=== PATIENT | female | born 1960 | race Caucasian/White ===

== ENCOUNTER 2019-01-12 16:13 | Emergency (ER) | payer BC, OTHER ==
[2019-01-12 17:22] VITALS: BP 149/92
--- NOTE | 2019-01-12 17:24 | UC ---
Skin Complaint HPI - HPI Summary HPI Summary: 58 yo female presents with poison tess exposure. She tells me that about 14-16 days ago she was removing a lot of plant material from her property. Over the next 1-2 days developed some linear red blistering to her left wrist and forearm. Over the next week developed similar appearing lesions on right arm, abdomen, and thigh. She has been taking an OTC antihistamine for this. Over the last 3 days has developed red blistering to her right cheek and earlobe. These have increased in swelling and pain since 3 days ago. Blisters have developed. She denies fever, chills, trouble hearing, drainage from the ear. - History of Current Complaint Chief Complaint: UCEar Time Seen by Provider: 01/12/19 17:24 Stated Complaint: SWOLLEN EAR AND RASH Hx Obtained From: Patient Onset/Duration: Gradual Onset Onset Severity: Severe Current Severity: Severe Pain Intensity: 7 Pain Scale Used: 0-10 Numeric - Allergy/Home Medications Allergies/Adverse Reactions: Allergies Allergy/AdvReac Type Severity Reaction Status Date / Time morphine Allergy respiratory Verified 01/12/19 17:22 response ended up in ICU after surgery NSAIDS (Non-Steroidal Allergy Pt got an Verified 01/12/19 17:22 Anti-Inflamma ulcer secondary to NSAID use topiramate Allergy caused Verified 01/12/19 17:22 acute glaucoma IV narcotics Allergy very Uncoded 07/01/18 11:23 sensitive to these with respiratory response PMH/Surg Hx/FS Hx/Imm Hx Cardiovascular History: Hypertension Respiratory History: COPD, Asthma Other History Of: Negative For: Anticoagulant Therapy - Surgical History Surgical History: Yes Surgery Procedure, Year, and Place: TONSILLECTOMY [address] [facility]. 2010 [place] [facility] [place] [facility] 2002 BONE GRAFT LEFT KNEE TO LEFT ANKLE [facility] [place]. -[facility] . LEFT ANKLE REPLACEMENT 2000-TRIGGER THUMB RIGHT[place] [place]. February 2014 - left total ANKLE replacement. 11/2011- [facility]- OFFICE - Family History Known Family History: Positive: None - Social History Lives: With Family Alcohol Use: Rare Alcohol Amount: 1 DRINK A MONTH Substance Use Type: None Smoking Status (MU): Never Smoked Tobacco - Immunization History Most Recent Influenza Vaccination: 04/2014 Most Recent Tetanus Shot: 04/2012 Most Recent Pneumonia Vaccination: NONE Review of Systems All Other Systems Reviewed And Are Negative: Yes Constitutional: Positive: Negative Skin: Positive: Rash Respiratory: Positive: Negative Cardiovascular: Positive: Negative Neurovascular: Positive: Negative Neurological: Positive: Negative Psychological: Positive: Negative Physical Exam - Summary Physical Exam Summary: GENERAL: NAD. WDWN. No pain distress. SKIN: B/L forearms with healing linear erythema and scant clear blistering 1- 5mm in size. On right ear there is moderate edema and mild erythema to earlobe and preauricular area with clear vesicles/blistering. TTP. No abscess, drainage , or streaking. No open wound. HEENT: Head: AT/NC Eyes: EOM intact. No lesions periorbitally Ears: Hearing grossly normal. TMs intact, no bulging, erythema, or edema. No lesions within ear canal. Throat: Posterior oropharynx without exudates, erythema, or tonsillar enlargement. Uvula midline. NECK: Supple. Nontender. No lymphadenopathy. CHEST: CTAB. No r/r/w. No accessory muscle use. Breathing comfortably and in no distress. CV: RRR. Without m/r/g. Pulses intact. Cap refill <2seconds NEURO: Alert. PSYCH: Age appropriate behavior. Triage Information Reviewed: Yes Vital Signs: Initial Vital Signs Temp 98.6 F 01/12/19 17:18 Pulse 76 01/12/19 17:18 Resp 12 01/12/19 17:18 BP 149/92 01/12/19 17:18 Pulse Ox 100 01/12/19 17:18 Vital Signs Reviewed: Yes Course/Dx - Course Course Of Treatment: Suspect poison tess. Advised to apply ice to her right ear/cheek area to decrease inflammation. Continue with antihistamine. Will place her on augmentin for prophylactic infection as no lesions or area appear infectious/cellulitic at this time. Will also place her prednisone for worsening/spreading poison tess. I recommended that she f/u with ENT this week as the lesions are on her right ear and could spread to her ear canal, but she is going out of town for 5 days for the January 14 holiday and says she wouldn't be able to attend ENT f/u. Therefore, I advised her that if her pain, redness, or swelling worsen or if she develops hearing difficulties or a fever that she go to the ER. Pt voiced understanding and agrees with the plan. - Diagnoses Provider Diagnosis: Contact dermatitis due to poison tess Discharge - Sign-Out/Discharge Documenting (check all that apply): Patient Departure All imaging exams completed and their final reports reviewed: No Studies - Discharge Plan Condition: Stable Disposition: HOME Prescriptions: Amoxicillin/Clavulanate TAB* [Augmentin TAB 875*] 875 mg PO BID #14 tab predniSONE TAB* [Deltasone 20 MG TAB*] 60 mg PO DAILY #17 tab Patient Education Materials: Poison Tess (ED) Referrals: Sushil Pires MD [Primary Care Provider] - Additional Instructions: If you develop a fever, shortness of breath, chest pain, new or worsening symptoms - please call your PCP or go to the ED immediately. Your blood pressure was high at todays visit. Please see your primary provider within 4 weeks for recheck and re-evaluation. 1) Apply ice to the area of discomfort to reduce swelling and pain 2) If the swelling worsens or if you develop trouble hearing or a fever - please be rechecked immediately - Billing Disposition and Condition Condition: STABLE Disposition: Home - Attestation Statements Provider Attestation: Per institutional requirements, I have reviewed the chart, however, I was not consulted specifically or made aware of this patient by the midlevel provider. I did not personally evaluate, interact with , or disposition this patient.
== END 2019-01-12 17:50 | disposition home or self-care (01) ==
LOC: UCEAST 16:13
DX: L24.7 Irritant contact dermatitis due to plants, except food (principal); I10 Essential (primary) hypertension; J44.9 Chronic obstructive pulmonary disease, unspecified; Z88.5 Allergy status to narcotic agent
CPT/HCPCS: 99212; G0463

== ENCOUNTER 2022-06-04 12:12 | Observation (INO) ==
[~2022-06-04 12:12] MED LIST: Buffered Lidocaine 1% SYRIN 1 ml INTRADERM ONE; Lactated Ringers 1000 ml BAG 1,000 ML IV SCH
[2022-06-04] MEDS ORDERED: Midazolam 2 mg/2 ml VIAL 1 mg/ml 2 ml VIAL (2 mg) ONE ×2 (12:28→14:04)
[2022-06-04] MEDS ORDERED: fentaNYL 100 mcg/2 ml 50 MCG/ML VIAL ONE ×4 (12:28→17:31)
[2022-06-04] MEDS ORDERED: Lidocaine 2% PF 5 ML VIAL ONE (12:29)
[2022-06-04] MEDS ORDERED: ceFAZolin 1 GM in Dextrose 0 GM/0 ML BAG ONE (12:36)
[2022-06-04] MEDS ORDERED: Ropivacaine 5 MG/ML 20 ML VIAL 0.5% (100 MG) ONE (14:01)
[2022-06-04] MEDS ORDERED: ROPIVACAINE 5 MG/ML 30 ML BTL (0.5%) ONE (14:04)
[2022-06-04] MEDS ORDERED: Phenylephrine IV 10 MG/ML 1 ml VIAL ONE (14:07)
[2022-06-04] MEDS ORDERED: Glycopyrrolate IV 0.2 MG/ML 1 ML VIAL ONE (14:47)
[2022-06-04] MEDS ORDERED: Ondansetron 4 mg VIAL 2 MG/ML 2 ml VIAL IV PRN ×2 (14:53→17:20)
[2022-06-04] MEDS ORDERED: Naloxone 0.4 mg VIAL 0.4 mg/ml 1 ml VIAL IV PRN (14:53)
[2022-06-04] MEDS ORDERED: Prochlorperazine 5 mg/ml 2 ml VIAL (10 mg) IV PRN (14:53)
[2022-06-04] MEDS ORDERED: Dexamethasone IV 4 MG/ML VIAL 1 ml VIAL ONE (16:03)
[2022-06-04] MEDS ORDERED: Ondansetron 4 mg VIAL 2 MG/ML 2 ml VIAL ONE (16:03)
[2022-06-04] MEDS ORDERED: Metoclopramide 5 MG/ML VIAL (10 mg) ONE (17:09)
[2022-06-04] MEDS ORDERED: Lactulose 30 ml UDC PO PRN (17:20)
[2022-06-04] MEDS ORDERED: Ondansetron ODT 4 mg TAB 4 MG TAB PO PRN (17:20)
[2022-06-04] MEDS ORDERED: Magnesium Hydroxide LIQ 30 ML UDC PO PRN (17:20)
[2022-06-04] MEDS: fentaNYL 100 mcg/2 ml 50 MCG/ML VIAL IV PRN ×2 (17:32→17:52)
[2022-06-04] MEDS ORDERED: Lactated Ringers 1000 ml BAG 1,000 ML IV SCH (18:00)
[2022-06-04] MEDS: Magnesium Hydroxide LIQ 30 ML UDC PO SCH (20:59)
[2022-06-04] MEDS: ceFAZolin 1 GM ADVAN 1 GM in NS 0.9% 50 ML 50 ML IVPB SCH (22:29)
[2022-06-05] MEDS: ceFAZolin 1 GM ADVAN 1 GM in NS 0.9% 50 ML 50 ML IVPB SCH ×2 (05:50→14:05)
[2022-06-05 08:23] LABS: Hematocrit 32 % (35-47); Hemoglobin 10.7 g/dL (12.0-16.0); Mean Platelet Volume 7.4 fL (7.4-10.4); Platelet Count 288 10^3/uL (150-450)
[2022-06-05] MEDS: Magnesium Hydroxide LIQ 30 ML UDC PO SCH (08:32)
[2022-06-05] MEDS ORDERED: Vitamin THERAPEUTIC TAB PO SCH (09:00)
[2022-06-05 09:05] LABS: Calcium 9.3 mg/dL (8.6-10.3); Potassium 4.6 mmol/L (3.5-5.0)
[2022-06-05 11:02] VITALS: BP 113/72
== END 2022-06-05 14:35 | disposition home or self-care (01) ==
LOC: SSU 12:12 → OR 12:12
PROVIDERS: ADMIT Orthopaedic Surgery Adult Reconstructive Orthopaedic Surgery; ATTEND Orthopaedic Surgery Adult Reconstructive Orthopaedic Surgery